=== PATIENT | male | born 1950 | race Caucasian/White ===

== ENCOUNTER 2016-12-28 07:15 | Day surgery (SDC) | payer OTHER, BC ==
[2016-12-27 11:12] VITALS: BMI 28.8
[2016-12-28] MEDS ORDERED: methylPREDNISolone ACET (DEPO) 80 MG/1 ML VIAL ONE (07:33)
[2016-12-28] MEDS ORDERED: BUPIVACAINE HCL/PF 0.25% (2.5MG/ML) 10 ML VIAL ONE (07:33)
[2016-12-28 07:46] VITALS: TEMP 97.7
[2016-12-28] MEDS ORDERED: PROPOFOL 20 ML ONE (08:31)
[2016-12-28] MEDS ORDERED: BUPIVACAINE HCL/PF 0.25% (2.5MG/ML) 10 ML VIAL IM ONE (08:53)
[2016-12-28] MEDS ORDERED: methylPREDNISolone ACET (DEPO) 80 MG/1 ML VIAL IM ONE (08:53)
[2016-12-28 11:34] VITALS: BP 132/85; PULSE 65
--- NOTE | 2016-12-28 21:17 | OP ---
DATE OF OPERATION: 12/28/2016 PREOPERATIVE DIAGNOSIS: Lumbar spinal stenosis with lower back pain and lumbar radiculopathy. POSTOPERATIVE DIAGNOSIS: Lumbar spinal stenosis with lower back pain and lumbar radiculopathy. ATTENDING SURGEON: Matthew uHang MD PROCEDURE: 1. Right L4-5 epidural steroid injection. 2. Intraoperative fluoroscopy. ANESTHESIA: Local with IV sedation. ANESTHESIOLOGIST: Nova Bloom MD INDICATION: The patient is a 66-year-old male with back pain and lumbar radiculopathy, predominantly right-sided. Because of the continued intractable pain and failure of conservative treatment, he is here for the 1st epidural steroid injection. The risks of the procedure include but are not limited to bleeding, infection, spinal headache, and neurological injury. The patient understands the indication for the procedure, procedure in detail, risks and benefits, and alternatives for treatment of his lumbar condition and wished to proceed. No guarantee is given for a favorable outcome. PROCEDURE IN DETAIL: After the patient was taken to the operating room, he was placed in a prone position with a pillow under his hips. Lumbar region was cleaned with alcohol and prepped with Betadine. A skin wheal was raised with 5 mL of 1% Xylocaine. A 22-gauge spinal needle was inserted under AP and lateral fluoroscopic guidance. From right-sided approach to L4-5, [id number] technique was utilized. A thickened ligamentum flavum layer was encountered. There was no CSF or blood backflow at any point in time. Depo-Medrol 80 mg and 1 mL of 0.25% Marcaine were injected. The needle was withdrawn, and a bandage was applied. The patient tolerated the procedure well and returned back to the supine position, moving bilateral extremities well. He did not complain of headache. MATTHEW HUANG M.D. [id number] MTDD
== END 2016-12-28 10:10 | disposition home or self-care (01) ==
LOC: JASU-SURG 07:15
PROVIDERS: ATTEND Neurological Surgery
PROC: 3E0R3CZ (ICD-10-PCS; 2016-12-28)
PROC: B01BZZZ Fluoroscopy of Spinal Cord (ICD-10-PCS; 2016-12-28)
PROC: 3E0R33Z Introduction of Anti-inflammatory into Spinal Canal, Percutaneous Approach (ICD-10-PCS; principal; 2016-12-28 08:30)
DX: M48.06 Spinal stenosis, lumbar region (principal); M54.16 Radiculopathy, lumbar region; M54.5 Low back pain
CPT/HCPCS: 76000-TC

== ENCOUNTER 2017-04-21 00:50 | Inpatient (IN) | payer OTHER, BC ==
[2017-04-21] MEDS ORDERED: SODIUM CHLORIDE 1,000 ML IV STA (01:34)
[2017-04-21] MEDS ORDERED: morphine CARPU-JECT 4 MG/1 ML DISP.SYRIN IVPUSH ONE (01:34)
[2017-04-21] MEDS ORDERED: ONDANSETRON 4 MG/2 ML VIAL IVPUSH ONE ×2 (01:34→05:01)
[2017-04-21 01:41] VITALS: BMI 28.8
[2017-04-21] MEDS ORDERED: ONDANSETRON 4 MG/2 ML VIAL ONE ×2 (01:46→05:04)
[2017-04-21] MEDS ORDERED: morphine CARPU-JECT 10 MG/1 ML DISP.SYRIN ONE (01:46)
[2017-04-21 01:47] LABS: BASOPHIL 0.4 % (0-2.0); EOSINOPHIL 1.3 % (0-4.5); MCH 27.4 pg (25.7-33.7); MCHC 32.9 g/dl (32.0-35.9); MEAN CELL VOLUME 83.3 fl (80-96); NEUTROPHILS 74.4 % (42.8-82.8); PLATELET COUNT 253 K/MM3 (134-434); RDW 14.1 % (11.9-15.9); WHITE BLOOD COUNT 11.9 K/mm3 (4.0-10.0)
[2017-04-21 02:09] LABS: ALBUMIN 4.1 g/dl (3.4-5.0); AMYLASE 69 U/L (25-115); ANION GAP 11 (8-16); BILIRUBIN,TOTAL 0.5 mg/dL (0.2-1.0); CALCIUM 9.1 mg/dL (8.5-10.1); CO2 30 mmol/L (21-32); CREATININE 1.4 mg/dL (0.7-1.3); GLUCOSE,RANDOM 123 mg/dL (74-106); SGOT/AST 19 U/L (15-37); SGPT/ALT 21 U/L (12-78); TOT PROT 7.9 g/dl (6.4-8.2)
[2017-04-21 02:10] LABS: ALK PHOS 74 U/L (45-117)
--- NOTE | 2017-04-21 02:22 | PDOC ---
History of Present Illness - General Chief Complaint: Pain Stated Complaint: ABD PAIN/VOMITING Time Seen by Provider: 04/21/17 01:29 History Source: Patient Exam Limitations: No Limitations - History of Present Illness Travel History: No Initial Comments: 04/21/17 02:17 66yo Male patient w/ PmHx: Colon Ca, Bowel resection, multiple bowel obstruction presents to ED c/o abdominal pain which began at 6pm with vomiting. Patient reports pain to LLQ. He denies fever, constipation, diarrhea, back pain , CP, Diff breathing or any other complaints at this time. GI- Dr. Fraire. Timing/Duration: reports: getting worse, changing over time Quality: reports: severe Abdominal Pain Onset Location: reports: LLQ Pain Radiation: reports: no radiation Activities at Onset: reports: none Treatment Prior to Arrive: worse with: analgesics, antacids, cold pack, heat, laxative, enema, other Aggravating Factors: worse with: None, Defecation, Eating, Emotional upset, Exertion, Kathleen, Movement, Voiding, Change in position Alleviating Factors: worse with: None, Belching, Shallow Breathing, Defecation, Eating, Holding Breath, Passing Gas, Change in Position, Rest, Voiding, Vomiting Past History - Travel Traveled outside of the country in the last 30 days: No Close contact w/someone who was outside of country & ill: No - Past Medical History Allergies/Adverse Reactions: Allergies Allergy/AdvReac Type Severity Reaction Status Date / Time No Known Allergies Allergy Verified 12/28/16 07:50 Home Medications: Ambulatory Orders Atorvastatin Ca [Lipitor] 40 mg PO HS 07/12/16 Cholecalciferol (Vitamin D3) [Vitamin D3] 5,000 unit PO DAILY 07/12/16 Losartan Potassium 50 mg PO DAILY 07/12/16 Magnesium Oxide [Magnesium] 500 mg PO DAILY 07/12/16 Metoprolol Succinate [Toprol Xl -] 12.5 mg PO DAILY 07/12/16 Multivitamins [Tab-A-Vit -] 1 tab PO DAILY 07/12/16 [place]-3S/Dha/Epa/Fish Oil [Fish Oil 1,200 mg Softgel] 1 each PO DAILY 07/12/16 Ranolazine [Ranexa] 1,000 mg PO BID 07/12/16 Anemia: No Asthma: No Cancer: Yes (COLON) Cardiac Disorders: Yes CVA: No COPD: No Dementia: No Diabetes: No GI Disorders: No Disorders: No HTN: Yes Hypercholesterolemia: Yes Liver Disease: No Seizures: No Thyroid Disease: No - Surgical History Abdominal Surgery: Yes (BOWEL RESECTION 1996) Cardiac Surgery: Yes (PACEMAKER STENTS ) Lung Surgery: No Neurologic Surgery: No Orthopedic Surgery: No - Psycho/Social/Smoking Cessation Hx Suicidal Ideation: No Smoking History: Never smoked Have you smoked in the past 12 months: No Hx Alcohol Use: No Drug/Substance Use Hx: No Substance Use Type: Alcohol Abd/GI Specific PMHX - Complaint Specific PMHX Colitis: No Diverticulitis: No Gall Bladder Disease: No GERD: No Hepatitis: No Irritable Bowel Synd (IBS): No Pancreatitis: No GI Ulcer Disease: No Review of Systems - Review of Systems Able to Perform ROS?: Yes Is the patient limited Albanian proficient: No Constitutional: No: Chills, Fever Cardiac (ROS): No: Chest Pain, Chest Tightness ABD/GI: Yes: Nausea, Poor Fluid Intake, Vomiting, Abdominal cramping. No: Abdominal Distended, Blood Streaked Bowels, Constipated, Diarrhea, Poor Appetite , Rectal Bleeding : No: Burning, Dysuria, Discharge, Flank Pain, Hematuria, Incontinence, Pain, Urgency Musculoskeletal: No: Back Pain, Joint Pain Integumentary: No: Bruising, Erythema, Sweating Neurological: No: Headache, Ataxia, Dizziness All Other Systems: Reviewed and Negative *Physical Exam - Vital Signs Last Vital Signs Temp Pulse Resp BP Pulse Ox 98.7 F 64 21 183/89 95 04/21/17 01:04/21/17 01:04/21/17 01:04/21/17 01:04/21/17 01:17 - Physical Exam General Appearance: Yes: Nourished, Appropriately Dressed, Moderate Distress. No: Apparent Distress, Mild Distress, Severe Distress Neck: positive: Trachea midline, Supple. negative: Normal Thyroid, Rigid, Lymphadenopathy (R), Lymphadenopathy (L), Rigidity, Tender lateral, Tender midline Respiratory/Chest: positive: Lungs Clear, Normal Breath Sounds. negative: Chest Tender, Respiratory Distress, Accessory Muscle Use, Labored Respiration, Rapid RR, Crackles, Rales, Rhonchi, Stridor, Wheezing Cardiovascular: positive: Regular Rhythm, Regular Rate Gastrointestinal/Abdominal: positive: Tender, Soft, Decreased BS, Guarding, Tenderness (Generalized tenderness throughout abdomen.). negative: Distended, Rebound Musculoskeletal: positive: Normal Inspection. negative: CVA Tenderness Extremity: positive: Normal Capillary Refill, Normal Inspection, Normal Range of Motion. negative: Pedal Edema, Swelling, Calf Tenderness, Erythema, Inflammation Integumentary: positive: Normal Color, Dry, Warm. negative: Clammy, Diaphoresis , Rash, Swelling Neurologic: positive: custody officer II-XII NML intact, Fully Oriented, Alert, Normal Mood/ Affect, Normal Response, Motor Strength 12/30 ED Treatment Course - LABORATORY CBC & Chemistry Diagram: 04/21/17 01:43 04/21/17 01:43 - ADDITIONAL ORDERS Additional order review: 04/21/17 01:43 RBC 5.42 MCV 83.3 MCHC 32.9 RDW 14.1 MPV 8.0 Neutrophils % 74.4 Lymphocytes % 15.6 D Monocytes % 8.3 Eosinophils % 1.3 Basophils % 0.4 - Medications Given in the ED: ED Medications Discontinued Medications Generic Name Dose Route Start Last Admin Trade Name Freq PRN Reason Stop Dose Admin Morphine Sulfate 4 mg 04/21/17 01:34 04/21/17 01:51 Morphine Injection - IVPUSH 04/21/17 01:35 4 mg ONCE ONE Administration Ondansetron HCl 4 mg 04/21/17 01:34 04/21/17 01:51 Zofran Injection IVPUSH 04/21/17 01:35 4 mg ONCE ONE Administration
[2017-04-21 03:01] LABS: CPK 90 IU/L (39-308); TROPONIN I < 0.02 ng/ml (0.00-0.05)
[2017-04-21 03:25] LABS: URINE APPEARANCE CLEAR; URINE BILIRUBIN NEGATIVE (NEGATIVE); URINE BLOOD 1+ (NEGATIVE); URINE COLOR YELLOW; URINE GLUCOSE (UA) NEGATIVE (NEGATIVE); URINE KETONE NEGATIVE (NEGATIVE); URINE LEUK ESTERASE NEGATIVE (NEGATIVE); URINE NITRITE NEGATIVE (NEGATIVE); URINE PROTEIN NEGATIVE (NEGATIVE); URINE UROBILINOGEN NEGATIVE mg/dL (0.2-1.0)
[2017-04-21 03:27] LABS: URINE BACTERIA RARE /hpf (NONE SEEN); URINE MUCUS FEW; URINE RBC 18 /hpf (0-3); URINE WBC 1 /hpf (3-5)
--- NOTE | 2017-04-21 04:44 | PDOC ---
*Physical Exam - Vital Signs Last Vital Signs Temp Pulse Resp BP Pulse Ox 98.7 F 64 21 183/89 95 04/21/17 01:17 04/21/17 01:17 04/21/17 01:17 04/21/17 01:17 04/21/17 01:17 ED Treatment Course - LABORATORY CBC & Chemistry Diagram: 04/24/17 07:30 04/24/17 07:30 - ADDITIONAL ORDERS Additional order review: Laboratory Results 04/21/17 04/21/17 04/21/17 03:21 02:41 02:17 Sodium Potassium Chloride Carbon Dioxide Anion Gap BUN Creatinine Creat Clearance w eGFR Random Glucose Lactic Acid 1.7 Calcium Total Bilirubin AST ALT Alkaline Phosphatase Creatine Kinase 90 Troponin I < 0.02 Total Protein Albumin Total Amylase Lipase Urine Color Yellow Urine Appearance Clear Urine pH 6.0 Urine Protein Negative Urine Glucose (UA) Negative Urine Ketones Negative Urine Blood 1+ H Urine Nitrite Negative Urine Bilirubin Negative Urine Urobilinogen Negative Ur Leukocyte Esterase Negative Urine RBC 18 Urine WBC 1 Urine Bacteria Rare Urine Mucus Few 04/21/17 01:43 Sodium 142 Potassium 4.2 Chloride 101 Carbon Dioxide 30 Anion Gap 11 BUN 21 H Creatinine 1.4 H Creat Clearance w eGFR 50.40 Random Glucose 123 H D Lactic Acid Calcium 9.1 Total Bilirubin 0.5 D AST 19 ALT 21 Alkaline Phosphatase 74 Creatine Kinase Troponin I Total Protein 7.9 Albumin 4.1 Total Amylase 69 Lipase 202 Urine Color Urine Appearance Urine pH Urine Protein Urine Glucose (UA) Urine Ketones Urine Blood Urine Nitrite Urine Bilirubin Urine Urobilinogen Ur Leukocyte Esterase Urine RBC Urine WBC Urine Bacteria Urine Mucus 04/21/17 01:43 RBC 5.42 MCV 83.3 MCHC 32.9 RDW 14.1 MPV 8.0 Neutrophils % 74.4 Lymphocytes % 15.6 D Monocytes % 8.3 Eosinophils % 1.3 Basophils % 0.4 - Medications Given in the ED: ED Medications Discontinued Medications Generic Name Dose Route Start Last Admin Trade Name Freq PRN Reason Stop Dose Admin Sodium Chloride 1,000 mls @ 1,000 mls/hr 04/21/17 01:34 04/21/17 01:51 Normal Saline - IV 04/21/17 02:33 1,000 mls/hr ASDIR STA Administration Morphine Sulfate 4 mg 04/21/17 01:34 04/21/17 01:51 Morphine Injection - IVPUSH 04/21/17 01:35 4 mg ONCE ONE Administration Ondansetron HCl 4 mg 04/21/17 01:34 04/21/17 01:51 Zofran Injection IVPUSH 04/21/17 01:35 4 mg ONCE ONE Administration Medical Decision Making - Medical Decision Making 04/21/17 04:43 agree with care from FOOT PRESS OPERATOR Arnaldo *DC/Admit/Observation/Transfer Diagnosis at time of Disposition: Abdominal pain, Small intestine obstruction - Discharge Dispostion Disposition: HOME Condition at time of disposition: Stable
[2017-04-21] MEDS ORDERED: morphine CARPU-JECT 2 MG/1 ML DISP.SYRIN IVPUSH ONE (05:02)
[2017-04-21] MEDS ORDERED: morphine CARPU-JECT 2 MG/1 ML DISP.SYRIN ONE (05:03)
--- NOTE | 2017-04-21 05:54 | PDOC ---
*Physical Exam - Vital Signs Last Vital Signs Temp Pulse Resp BP Pulse Ox 98.7 F 71 20 171/104 95 04/21/17 01:17 04/21/17 05:22 04/21/17 05:22 04/21/17 05:22 04/21/17 01:17 - Physical Exam Comments: 04/21/17 05:55 PMHX: SBO HTN Cervical/lumbar disc herniation Lume dx: 2003 Pshx: 01/1996 [facility]: Colon CA, Colon resection/Dr. Abbott 01/1996, 5 days post op(colon resection) rupture anastomosis causing peritonitis. Colostomy by Dr. Abbott 05/1996: [facility]; Dr. Abbott colostomy reversal 07/1996: [facility]: SBO/ Lysis of adhesions by Scar Ibrahim 1996: [facility]el/?, SBO. No surgery/NG tube 2011: PM due to lyme dz "attacked my AV node" 2013: 4 Cardiac stents 2016: [facility]: Incarcerated Ventral Hernia/ SBO Metronic: CMRN: [id number] DOS: 06/07/2013 Metronic A2DR01 SN:[id number] Metronic 5086MRI-45cm SN: [id number] Metronic 5086MRI SN:[id number] (Supply Chain Planner) [facility] [phone] 66-year-old male with a history of bowel resection due to: CVA and multiple mechanical obstructions presents to the emergency department today with his complaining of diffuse abdominal pain with nausea and vomiting since approximately 1800 hrs. Pain is described as 6/10 sharp nonradiating intermittent discomfort to the left lower quadrant. Patient denies any fever, chills, vomiting, constipation, chest pain, shortness of breath, flank pains, urinary symptoms. ED Treatment Course - LABORATORY CBC & Chemistry Diagram: 04/21/17 01:43 04/21/17 01:43 - ADDITIONAL ORDERS Additional order review: Laboratory Results 04/21/17 04/21/17 04/21/17 03:21 02:41 02:17 Sodium Potassium Chloride Carbon Dioxide Anion Gap BUN Creatinine Creat Clearance w eGFR Random Glucose Lactic Acid 1.7 Calcium Total Bilirubin AST ALT Alkaline Phosphatase Creatine Kinase 90 Troponin I < 0.02 Total Protein Albumin Total Amylase Lipase Urine Color Yellow Urine Appearance Clear Urine pH 6.0 Urine Protein Negative Urine Glucose (UA) Negative Urine Ketones Negative Urine Blood 1+ H Urine Nitrite Negative Urine Bilirubin Negative Urine Urobilinogen Negative Ur Leukocyte Esterase Negative Urine RBC 18 Urine WBC 1 Urine Bacteria Rare Urine Mucus Few 04/21/17 01:43 Sodium 142 Potassium 4.2 Chloride 101 Carbon Dioxide 30 Anion Gap 11 BUN 21 H Creatinine 1.4 H Creat Clearance w eGFR 50.40 Random Glucose 123 H D Lactic Acid Calcium 9.1 Total Bilirubin 0.5 D AST 19 ALT 21 Alkaline Phosphatase 74 Creatine Kinase Troponin I Total Protein 7.9 Albumin 4.1 Total Amylase 69 Lipase 202 Urine Color Urine Appearance Urine pH Urine Protein Urine Glucose (UA) Urine Ketones Urine Blood Urine Nitrite Urine Bilirubin Urine Urobilinogen Ur Leukocyte Esterase Urine RBC Urine WBC Urine Bacteria Urine Mucus 04/21/17 01:43 RBC 5.42 MCV 83.3 MCHC 32.9 RDW 14.1 MPV 8.0 Neutrophils % 74.4 Lymphocytes % 15.6 D Monocytes % 8.3 Eosinophils % 1.3 Basophils % 0.4 - RADIOLOGY Radiology Studies Ordered: Category Date Time Status ABDOMEN & PELVIS CT W/O CONTR [CT] Stat CT Scan 04/21/17 03:47 Taken Radiograph Interpretation: 04/21/17 06:08 CAT scan abdomen and pelvis with by mouth contrast: There is a dilated loops of left mid abdominal small bowel measuring up to 3.1 cm with mild regional mesenteric edema, suggestive of a small bowel shock prado. No abscess or free air. The transition point is not clearly seen but may be at the anastomosis suggesting structure - Medications Given in the ED: ED Medications Discontinued Medications Generic Name Dose Route Start Last Admin Trade Name Linoq PRN Reason Stop Dose Admin Sodium Chloride 1,000 mls @ 1,000 mls/hr 04/21/17 01:34 04/21/17 01:51 Normal Saline - IV 04/21/17 02:33 1,000 mls/hr ASDIR STA Administration Morphine Sulfate 4 mg 04/21/17 01:34 04/21/17 01:51 Morphine Injection - IVPUSH 04/21/17 01:35 4 mg ONCE ONE Administration Morphine Sulfate 2 mg 04/21/17 05:02 04/21/17 05:21 Morphine Injection - IVPUSH 04/21/17 05:03 2 mg ONCE ONE Administration Ondansetron HCl 4 mg 04/21/17 01:34 04/21/17 01:51 Zofran Injection IVPUSH 04/21/17 01:35 4 mg ONCE ONE Administration Ondansetron HCl 4 mg 04/21/17 05:01 04/21/17 05:21 Zofran Injection IVPUSH 04/21/17 05:02 4 mg ONCE ONE Administration Progress Note - Progress Note Progress Note: Patient waiting for CAT scan abdomen/pelvis with oral contrast 0613hrs: Hospitalist microblogged 0615hrs: Pt strongly advised to allow us to place an NG tube which he refuses at this time. Pt reports he has + flatulence. Pt wishes to consult with the admitting physician and the his own physician first. *DC/Admit/Observation/Transfer Diagnosis at time of Disposition: Small intestine obstruction Abdominal pain Qualifiers: Abdominal location: left lower quadrant Qualified Code(s): R10.32 - Left lower quadrant pain - Discharge Dispostion Admit: Yes
[2017-04-21] MEDS ORDERED: HYDROmorphone HCL CARPU-JECT 1 MG/1 ML DISP.SYRIN IVPUSH ONE (06:48)
[2017-04-21] MEDS ORDERED: METOCLOPRAMIDE HCL INJECTION 10 MG/2 ML VIAL IVPUSH ONE (06:49)
[2017-04-21] MEDS ORDERED: METOCLOPRAMIDE HCL INJECTION 10 MG/2 ML VIAL ONE (06:52)
[2017-04-21] MEDS ORDERED: HYDROmorphone HCL CARPU-JECT 1 MG/1 ML DISP.SYRIN ONE (06:52)
[2017-04-21] MEDS: DEXTROSE 5%-0.45% SALINE 1,000 ML IV SCH ×2 (07:01→18:44)
--- NOTE | 2017-04-21 07:36 | HP ---
CHIEF COMPLAINT:abdominal pain PCP: HISTORY OF PRESENT ILLNESS: 66yo Male patient w/ PmHx: Colon Ca(s/p bowel resection), Crohn's, and multiple SBO 2/2 multiple abdominal surgeries presents with one day history of abdominal pain. He describes constant 4/10 LLQ sharp pain that generalizes to 9/10 pain. Associated with nonbillouis, non-bloody vomiting. No alleviating factors, and aggravated by eating. He has multiple SBO's in the past 2/2 mechanical obstruction from adhesions. Not currently on any treatment for his Crohn's. Denies fever or chills. Denies CP, SPENCER, SOB, or palpiations. ER course was notable for: (1)CT abdomen shows small bowel obstruction but no inflammation. (2)CXR shows no acute pathology (3)EKG shows NSR with no st or t wave abnormalities. Recent Travel: Denies - Surgical History Abdominal Surgery: Yes (BOWEL RESECTION 1996) Cardiac Surgery: Yes (PACEMAKER STENTS ) Lung Surgery: No Neurologic Surgery: No Orthopedic Surgery: No - Psycho/Social/Smoking Cessation Hx Suicidal Ideation: No Smoking History: Never smoked Have you smoked in the past 12 months: No Hx Alcohol Use: No Drug/Substance Use Hx: No Substance Use Type: Alcohol Family History: Allergies No Known Allergies Allergy (Verified 12/28/16 07:50) HOME MEDICATIONS: Home Medications Medication Instructions Recorded Atorvastatin Ca [Lipitor] 40 mg PO HS 07/12/16 Cholecalciferol (Vitamin D3) 5,000 unit PO DAILY 07/12/16 [Vitamin D3] Losartan Potassium 50 mg PO DAILY 07/12/16 Magnesium Oxide [Magnesium] 500 mg PO DAILY 07/12/16 Metoprolol Succinate [Toprol Xl -] 12.5 mg PO DAILY 07/12/16 Multivitamins [Tab-A-Vit -] 1 tab PO DAILY 07/12/16 [place]-3S/Dha/Epa/Fish Oil [Fish 1 each PO DAILY 07/12/16 Oil 1,200 mg Softgel] Ranolazine [Ranexa] 1,000 mg PO BID 07/12/16 REVIEW OF SYSTEMS CONSTITUTIONAL: Absent: fever, chills, diaphoresis, generalized weakness, malaise, loss of appetite, weight change HEENT: Absent: rhinorrhea, nasal congestion, throat pain, throat swelling, difficulty swallowing, mouth swelling, ear pain, eye pain, visual changes CARDIOVASCULAR: Absent: chest pain, syncope, palpitations, irregular heart rate, lightheadedness , peripheral edema RESPIRATORY: Absent: cough, shortness of breath, dyspnea with exertion, orthopnea, wheezing, stridor, hemoptysis GASTROINTESTINAL:abdominal pain, abdominal distension, nausea, vomiting Absent: , diarrhea, constipation, melena, hematochezia GENITOURINARY: Absent: dysuria, frequency, urgency, hesitancy, hematuria, flank pain, genital pain MUSCULOSKELETAL: Absent: myalgia, arthralgia, joint swelling, back pain, neck pain SKIN: Absent: rash, itching, pallor HEMATOLOGIC/IMMUNOLOGIC: Absent: easy bleeding, easy bruising, lymphadenopathy, frequent infections ENDOCRINE: Absent: unexplained weight gain, unexplained weight loss, heat intolerance, cold intolerance NEUROLOGIC: Absent: headache, focal weakness or paresthesias, dizziness, unsteady gait, seizure, mental status changes, bladder or bowel incontinence PSYCHIATRIC: Absent: anxiety, depression, suicidal or homicidal ideation, hallucinations. PHYSICAL EXAMINATION GENERAL: AAOx3, mild distress HEAD: Normal with no signs of trauma. EYES: PERRLA,EOMI, sclera anicteric, conjunctiva clear. No lid lag. EARS, NOSE, THROAT:dry mucous membranes. NECK: supple, no jvd LUNGS: CTAB. No wheezes, and no crackles. No accessory muscle use. HEART: RRR, normal S1 and S2 without murmur, rub or gallop. ABDOMEN: Soft, LLQ tenderness, moderately distended,Extensive surgical scaring , normoactive bowel sounds, no guarding, no rebound, no masses. No hepatomegaly or splenomegaly. MUSCULOSKELETAL: Normal range of motion at all joints. No bony deformities or tenderness. No CVA tenderness. UPPER EXTREMITIES: 2+ pulses, warm, well-perfused. No cyanosis. No clubbing. No peripheral edema. LOWER EXTREMITIES: 2+ pulses, warm, well-perfused. No calf tenderness. No peripheral edema. NEUROLOGICAL: Cranial nerves II-XII intact. Normal speech. Normal gait. PSYCHIATRIC: Cooperative. Good eye contact. Appropriate mood and affect. SKIN: Warm, dry, normal turgor, no rashes or lesions noted, normal capillary refill. ASSESSMENT/PLAN: 66yo Male patient w/ PmHx: Colon Ca, multiple bowel obstruction admitted for acute SBO. Problem List - Problem (1) Small intestine obstruction Assessment/Plan: * Will admit to med-surg * NPO for now * IVF with D5 1/2 NS * Surgery consult - Dr. Peace * Dilaudid 1mg Q4HPRN pain control * Zofran 4mg Q6hr IV for nausea. Visit type - Emergency Visit Emergency Visit: Yes ED Registration Date: 04/21/17 Care time: The patient presented to the Emergency Department on the above date and was hospitalized for further evaluation of their emergent condition. - New Patient This patient is new to me today: Yes Date on this admission: 04/21/17 - Critical Care Critical Care patient: No
[2017-04-21] MEDS: HYDROmorphone HCL CARPU-JECT 1 MG/1 ML DISP.SYRIN IVPUSH PRN ×3 (11:30→20:27)
[2017-04-21] MEDS: HEPARIN NA (PORCINE) 5,000 UNITS/ML 1ML VIAL SQ SCH ×2 (11:33→22:26)
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
[2017-04-21] MEDS: ONDANSETRON 4 MG/2 ML VIAL IVPB PRN ×2 (11:55→17:25)
[2017-04-21] MEDS ORDERED: METOPROLOL TARTRATE 5 MG/5 ML VIAL IVPUSH PRN (11:56)
--- NOTE | 2017-04-21 12:04 | EKG ---
Test Reason : Blood Pressure : / mmHG Vent. Rate : 094 BPM Atrial Rate : 094 BPM P-R Int : 206 ms QRS Dur : 154 ms QT Int : 410 ms P-R-T Axes : -03 080 -37 degrees QTc Int : 512 ms AV dual-paced rhythm ABNORMAL ECG WHEN COMPARED WITH ECG OF 12-JUL-2016 15:19, ELECTRONIC VENTRICULAR PACEMAKER HAS REPLACED JUNCTIONAL RHYTHM Confirmed by MD CRISTHIAN, DIXIE ([id number]) on 04/21/2017 12:04:00 PM Referred By: Confirmed By:DIXIE MORROW MD
--- NOTE | 2017-04-21 13:56 | HP ---
CHIEF COMPLAINT: abdominal pain and emesis since 6pm GI: Dr. Vigil, [facility] HISTORY OF PRESENT ILLNESS: 66 y/o M with PMH Crohns (dx 20 yrs ago), Colon CA, multiple SBO, bowel resection (1996), hx incarcerated ventral hernia, who presented to the ED with abdominal pain and vomiting since 6pm, yesterday. As per pt, he developed abdominal pain after eating pizza and wings for dinner last night. Pain was 10/ 10, in the LLQ, sharp, non-radiating and intermittent, and came in waves- first 1-2 min apart, then becoming constant. Pt stated that it was similar to his past episodes of SBO. During this time, pt had multiple episodes of NBNB vomiting. His last BM was yesterday, and he hasn't been able to go since, and hasn't passed flatus. He also has had chills. Denies headache, fever, diarrhea, dysuria, sick contacts. ER course was notable for: (1) CT abdomen w/contrast (2) Morphine, Zofran (3) Recent Travel: none PAST MEDICAL HISTORY: HTN, HLD, Crohns (dx 20 yrs ago), colon CA, bowel resection, multiple episodes SBO, pancreatic cyst PAST SURGICAL HISTORY: 4 cardiac stents, bowel resection 1996, lysis of adhesions, incarcerated ventral hernia Social History: Smoking: denies Alcohol: social drinker, wine on weekends- limited Drugs: denies Family History: Brother- mitral valve replacement, mother -emphysema, father- emphysema Allergies No Known Allergies Allergy (Verified 12/28/16 07:50) HOME MEDICATIONS: Home Medications Medication Instructions Recorded Atorvastatin Ca [Lipitor] 40 mg PO HS 07/12/16 Cholecalciferol (Vitamin D3) 5,000 unit PO DAILY 07/12/16 [Vitamin D3] Losartan Potassium 50 mg PO DAILY 07/12/16 Magnesium Oxide [Magnesium] 500 mg PO DAILY 07/12/16 Metoprolol Succinate [Toprol Xl -] 12.5 mg PO DAILY 07/12/16 Multivitamins [Tab-A-Vit -] 1 tab PO DAILY 07/12/16 [place]-3S/Dha/Epa/Fish Oil [Fish 1 each PO DAILY 07/12/16 Oil 1,200 mg Softgel] Ranolazine [Ranexa] 1,000 mg PO BID 07/12/16 REVIEW OF SYSTEMS CONSTITUTIONAL: +chills Absent: fever, chills, diaphoresis, generalized weakness, malaise, loss of appetite, weight change HEENT: Absent: rhinorrhea, nasal congestion, throat pain, throat swelling, difficulty swallowing, mouth swelling, ear pain, eye pain, visual changes CARDIOVASCULAR: Absent: chest pain, syncope, palpitations, irregular heart rate, lightheadedness , peripheral edema RESPIRATORY: Absent: cough, shortness of breath, dyspnea with exertion, orthopnea, wheezing, stridor, hemoptysis GASTROINTESTINAL: +abdominal pain, nausea, vomiting Absent: abdominal pain, abdominal distension, nausea, vomiting, diarrhea, constipation, melena, hematochezia GENITOURINARY: Absent: dysuria, frequency, urgency, hesitancy, hematuria, flank pain, genital pain MUSCULOSKELETAL: Absent: myalgia, arthralgia, joint swelling, back pain, neck pain SKIN: Absent: rash, itching, pallor HEMATOLOGIC/IMMUNOLOGIC: Absent: easy bleeding, easy bruising, lymphadenopathy, frequent infections ENDOCRINE: Absent: unexplained weight gain, unexplained weight loss, heat intolerance, cold intolerance NEUROLOGIC: Absent: headache, focal weakness or paresthesias, dizziness, unsteady gait, seizure, mental status changes, bladder or bowel incontinence PSYCHIATRIC: Absent: anxiety, depression, suicidal or homicidal ideation, hallucinations. PHYSICAL EXAMINATION Vital Signs - 24 hr 04/21/17 04/21/17 09:00 13:00 Temperature 98.2 F Pulse Rate 92 H 98 H Respiratory 16 16 Rate Blood Pressure 158/101 142/82 O2 Sat by Pulse 97 Oximetry (%) GENERAL: Awake, alert, and fully oriented, in no acute distress. HEAD: Normal with no signs of trauma. EYES: Pupils equal, round and reactive to light, extraocular movements intact, sclera anicteric, conjunctiva clear. NECK: Normal range of motion, supple without lymphadenopathy, JVD, or masses. LUNGS: Breath sounds equal, clear to auscultation bilaterally. No wheezes, and no crackles. No accessory muscle use. HEART: Regular rate and rhythm, normal S1 and S2 without murmur, rub or gallop. ABDOMEN: Soft, distended, tender to palpation LLQ, normoactive bowel sounds, no guarding, no rebound, no masses. No hepatomegaly or splenomegaly. Linear scar from past surgeries at midline. MUSCULOSKELETAL: Normal range of motion at all joints. No bony deformities or tenderness. No CVA tenderness. LOWER EXTREMITIES: 2+ posterior tibial pulses, warm, well-perfused. No calf tenderness. No peripheral edema. NEUROLOGICAL: Cranial nerves II-XII intact. ASSESSMENT/PLAN: 66 y/o M with PMH Crohns (dx 20 yrs ago), Colon CA, multiple SBO, bowel resection (1996), hx incarcerated ventral hernia, who presented to the ED with abdominal pain and vomiting since 6pm, yesterday. Pt admitted to med-surg for SBO secondary to adhesions. #SBO secondary to adhesions -waves of sharp pain after meal, by 1-2 min then becoming constant -Significant hx past SBO -no recent BMs, obstipation -NPO -IV hydration D51/2NS to replete fluids -Surgery consult -GI consult recommended -Dilaudid 1mg q4h PRN for pain control -Zofran PRN for nausea -Parenteral glucocorticoids if does not resolve in 24-28 hrs, suggested in pts with comorbid Crohns and SBO -NG tube- refused by pt, risks and benefits discussed with pt, pt expressed understanding -Serial abdominal exams #HTN-uncontrolled -BP 158/101, most likely secondary to pain -Will see if resolves with pain control -Continue Losartan 50 mg PO daily -Continue Toprol XL 12.5 mg PO daily #HLD -Continue lipitor 40mg PO HS #NAVEEN secondary to volume depletion -most likely pre-renal, d/t depletion resulting from SBO -Manage with IVF -F/u BMP routinely -Baseline Cr ~1.5 #Prophylaxis DVT: early ambulation #FEN -D51/2NS -Monitor electrolytes -NPO Disposition med-surg Visit type - Emergency Visit Emergency Visit: Yes ED Registration Date: 04/21/17 Care time: The patient presented to the Emergency Department on the above date and was hospitalized for further evaluation of their emergent condition. - New Patient This patient is new to me today: Yes Date on this admission: 04/21/17 - Critical Care Critical Care patient: No
--- NOTE | 2017-04-21 14:01 | PN ---
Teaching Attending Note Name of Resident: Shilpa Rachel ATTENDING PHYSICIAN STATEMENT I saw and evaluated the patient. I reviewed the resident's note and discussed the case with the resident. I agree with the resident's findings and plan as documented. 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 Developed after eating pizza and wings. was sudden onset, sharp and non radiating. states since hes arrived to the ER the pain has improved with pain medication. passing a lot of flatus. denies CP, SOB, fever, chills, or BM since yesterday Last SBO was 06/2016 and was treated conservatively. Multiple SBO all managed conservatively. did have surgery for lysis of adhesions OBJECTIVE: Last Vital Signs Temp Pulse Resp BP Pulse Ox 98.2 F 98 H 16 142/82 97 04/21/17 09:00 04/21/17 13:00 04/21/17 13:00 04/21/17 13:00 04/21/17 09:00 General NAD CV S1 S2 RRR no murmur/rub/gallop Lungs CTA B/L no wheezing/rales/rhonchi Abdomen soft +distended, tympanic. +LLQ tenderness hypoactive BS Extremities no pedal edema ASSESSMENT AND PLAN: 66yo M with PMH adenocarcinoma of the cecum, multiple SBP and Crohns presented to the ER with abdominal pain and vomiting and found to have SBO 1. SBO- medicine admission. likely due to adhesionspt is refusing NGT placement. discuss risks and benefits of placement. verbalized understanding but states it feels to have been improving. serial abdominal exams. repeat AXR shows not much improvement since initial CT on my read. cont NPO, IVF, pain and nausea control. GI and surgery on board. 2. HTN- above goal. likely due to pain. will monitor at this time. increase if needed to optimize control 3. NAVEEN- likely dehydration. IVF. avoid nephrotoxic agents 4. Gastric polyp- seen on CT scan. no known hx. not seen on CT scan from last year. will need to determine if this was seen on previous endoscopy. obtain records from GI 5. adenocarcinoma of the cecum 6. hematuria- possible dehydration. repeat UA 7. DVT ppx- hep sq
[2017-04-21] MEDS: LOSARTAN POTASSIUM 50 MG TABLET (FP) PO SCH (16:11)
[2017-04-21] MEDS: METOPROLOL SUCCINATE 25 MG TAB.SR.24H (FP) PO SCH (16:11)
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
[2017-04-21] MEDS ORDERED: ATORVASTATIN CA 40 MG TABLET (FP) PO SCH (22:00)
[2017-04-21] MEDS: RANOLAZINE E.R. 500 MG TABLET (FP) PO SCH (22:26)
[2017-04-21] MEDS: ATORVASTATIN CA 40 MG TABLET (FP) PO SCH (22:26)
[2017-04-22] MEDS: ONDANSETRON 4 MG/2 ML VIAL IVPB PRN ×2 (01:17→22:56)
[2017-04-22] MEDS: HYDROmorphone HCL CARPU-JECT 1 MG/1 ML DISP.SYRIN IVPUSH PRN ×2 (01:50→07:19)
[2017-04-22 07:08] LABS: BASOPHIL 0.4 % (0-2.0); EOSINOPHIL 6.4 % (0-4.5); MCH 27.2 pg (25.7-33.7); MCHC 32.2 g/dl (32.0-35.9); MEAN CELL VOLUME 84.6 fl (80-96); NEUTROPHILS 49.5 % (42.8-82.8); PLATELET COUNT 185 K/MM3 (134-434); WHITE BLOOD COUNT 5.1 K/mm3 (4.0-10.0)
[2017-04-22 07:21] LABS: ALBUMIN 3.1 g/dl (3.4-5.0); ALK PHOS 58 U/L (45-117); ANION GAP 4 (8-16); BILIRUBIN,TOTAL 0.9 mg/dL (0.2-1.0); CALCIUM 8.1 mg/dL (8.5-10.1); CO2 32 mmol/L (21-32); CREATININE 1.2 mg/dL (0.7-1.3); GLUCOSE,RANDOM 102 mg/dL (74-106); PHOSPHOROUS 2.8 mg/dL (2.5-4.9); SGOT/AST 16 U/L (15-37); SGPT/ALT 16 U/L (12-78)
[2017-04-22] MEDS ORDERED: HYDROmorphone HCL CARPU-JECT 1 MG/1 ML DISP.SYRIN IVPB PRN (07:42)
--- NOTE | 2017-04-22 07:51 | PN ---
Progress Note (short form) - Note Progress Note: states abdominal pain has improved. less cramping. distention feels improved. and requesting to eat. denies CP, SOB, fever, chills, N/V. +flatus no BM Current Medications Generic Name Dose Route Start Last Admin Trade Name Freq PRN Reason Stop Dose Admin Atorvastatin Calcium 40 mg 04/21/17 22:00 04/21/17 22:26 Lipitor - PO 40 mg HS LAKISHA Administration Heparin Sodium (Porcine) 5,000 unit 04/21/17 10:00 04/21/17 22:26 Heparin - SQ 5,000 unit BID LAKISHA Administration Hydromorphone HCl 1 mg 04/22/17 07:42 Dilaudid Injection - IVPB Q4H PRN PAIN Dextrose/Sodium Chloride 1,000 mls @ 125 mls/hr 04/21/17 07:00 04/21/17 18:44 D5-1/2ns - IV 125 mls/hr ASDIR LAKISHA Administration Losartan Potassium 50 mg 04/21/17 14:15 04/21/17 16:11 Cozaar - PO 50 mg DAILY LAKISHA Administration Metoprolol Succinate 12.5 mg 04/21/17 14:15 04/21/17 16:11 Toprol Xl - PO 12.5 mg DAILY LAKISHA Administration Ondansetron HCl 4 mg 04/21/17 07:26 04/22/17 01:17 Zofran Injection IVPB 4 mg Q6H PRN Administration NAUSEA Ranolazine 1,000 mg 04/21/17 22:00 04/21/17 22:26 Ranexa - PO 1,000 mg BID LAKISHA Administration Last Vital Signs Temp Pulse Resp BP Pulse Ox 98.6 F 82 18 142/84 97 04/22/17 02:00 04/22/17 02:00 04/22/17 02:00 04/22/17 02:00 04/21/17 09:00 General NAD Abdomen soft +distended, tympanic. no tenderness normoactive BS Extremities no pedal edema CBCD WBC 5.1 K/mm3 (4.0-10.0) D 04/22/17 06:00 RBC 4.28 M/mm3 (4.00-5.60) D 04/22/17 06:00 Hgb 11.7 GM/dL (11.7-16.9) D 04/22/17 06:00 Hct 36.3 % (35.4-49) D 04/22/17 06:00 MCV 84.6 fl (80-96) 04/22/17 06:00 MCHC 32.2 g/dl (32.0-35.9) 04/22/17 06:00 RDW 14.0 % (11.9-15.9) 04/22/17 06:00 Plt Count 185 K/MM3 (134-434) D 04/22/17 06:00 MPV 8.0 fl (7.5-11.1) 04/22/17 06:00 CMP Sodium 142 mmol/L (136-145) 04/21/17 01:43 Potassium 4.2 mmol/L (3.5-5.1) 04/21/17 01:43 Chloride 101 mmol/L (98-107) 04/21/17 01:43 Carbon Dioxide 30 mmol/L (21-32) 04/21/17 01:43 Anion Gap 11 (8-16) 04/21/17 01:43 BUN 21 mg/dL (7-18) H 04/21/17 01:43 Creatinine 1.4 mg/dL (0.7-1.3) H 04/21/17 01:43 Creat Clearance w eGFR 50.40 (>60) 04/21/17 01:43 Calcium 9.1 mg/dL (8.5-10.1) 04/21/17 01:43 Total Bilirubin 0.5 mg/dL (0.2-1.0) D 04/21/17 01:43 AST 19 U/L (15-37) 04/21/17 01:43 ALT 21 U/L (12-78) 04/21/17 01:43 Alkaline Phosphatase 74 U/L (45-117) 04/21/17 01:43 Total Protein 7.9 g/dl (6.4-8.2) 04/21/17 01:43 Albumin 4.1 g/dl (3.4-5.0) 04/21/17 01:43 ASSESSMENT AND PLAN: 66yo M with PMH adenocarcinoma of the cecum, multiple SBP and Crohns presented to the ER with abdominal pain and vomiting and found to have SBO 1. SBO- clinically improved. slightly less distended today. states UOP has increased and requesting to eat. f/u AXR this AM. if continues to improve will advance to clear liquid diet. consider suppositry but will wait results of xr. cont IVF, pain management and nausea control. GI and surgery on board. 2. HTN- improved. was likely elevated due to pain. cont home medications 3. NAVEEN- likely dehydration. IVF. avoid nephrotoxic agents 4. Gastric polyp- seen on CT scan. no known hx. not seen on CT scan from last year. will need to determine if this was seen on previous endoscopy. obtain records from GI 5. adenocarcinoma of the cecum 6. hematuria- possible dehydration. repeat UA 7. DVT ppx- hep sq Visit type - Emergency Visit Emergency Visit: Yes ED Registration Date: 04/21/17 Care time: The patient presented to the Emergency Department on the above date and was hospitalized for further evaluation of their emergent condition. - New Patient This patient is new to me today: No - Critical Care Critical Care patient: No - Discharge Referral Referred to [facility] No
[2017-04-22] MEDS: DEXTROSE 5%-0.45% SALINE 1,000 ML IV SCH ×2 (08:54→13:34)
[2017-04-22] MEDS: RANOLAZINE E.R. 500 MG TABLET (FP) PO SCH ×2 (09:43→22:12)
[2017-04-22] MEDS: METOPROLOL SUCCINATE 25 MG TAB.SR.24H (FP) PO SCH (09:44)
[2017-04-22] MEDS: HEPARIN NA (PORCINE) 5,000 UNITS/ML 1ML VIAL SQ SCH ×2 (09:44→22:11)
[2017-04-22] MEDS: LOSARTAN POTASSIUM 50 MG TABLET (FP) PO SCH (09:44)
[2017-04-22 11:11] LABS: URINE APPEARANCE CLEAR; URINE BILIRUBIN NEGATIVE (NEGATIVE); URINE BLOOD 2+ (NEGATIVE); URINE COLOR STRAW; URINE GLUCOSE (UA) NEGATIVE (NEGATIVE); URINE KETONE NEGATIVE (NEGATIVE); URINE LEUK ESTERASE NEGATIVE (NEGATIVE); URINE NITRITE NEGATIVE (NEGATIVE); URINE PROTEIN NEGATIVE (NEGATIVE); URINE UROBILINOGEN NEGATIVE mg/dL (0.2-1.0)
[2017-04-22 11:13] LABS: URINE RBC 2 /hpf (0-3)
--- NOTE | 2017-04-22 13:47 | PN ---
Progress Note, Physician History of Present Illness: Patient feels better , has less abdominal pain. Abdominal X-ray shows a few air fluid levels in small bowel , with all the contrast in the colon. This is suggestive of ? partial small bowel obstruction. Continue to monitor. Follow up, abdominal X-ray tomorrow. - Current Medication List Current Medications: Active Medications Atorvastatin Calcium (Lipitor -) 40 mg PO HS [facility] Last Admin: 04/21/17 22:26 Dose: 40 mg Heparin Sodium (Porcine) (Heparin -) 5,000 unit SQ BID [facility] Last Admin: 04/22/17 09:44 Dose: 5,000 unit Hydromorphone HCl (Dilaudid Injection -) 1 mg IVPB Q4H PRN PRN Reason: PAIN Dextrose/Sodium Chloride (D5-1/2ns -) 1,000 mls @ 125 mls/hr IV ASDIR [facility] Last Admin: 04/22/17 13:34 Dose: 125 mls/hr Losartan Potassium (Cozaar -) 50 mg PO DAILY [facility] Last Admin: 04/22/17 09:44 Dose: 50 mg Metoprolol Succinate (Toprol Xl -) 12.5 mg PO DAILY [facility] Last Admin: 04/22/17 09:44 Dose: 12.5 mg Ondansetron HCl (Zofran Injection) 4 mg IVPB Q6H PRN PRN Reason: NAUSEA Last Admin: 04/22/17 01:17 Dose: 4 mg Ranolazine (Ranexa -) 1,000 mg PO BID [facility] Last Admin: 04/22/17 09:43 Dose: 1,000 mg - Objective Vital Signs: Vital Signs Temperature 98.4 F 04/22/17 10:00 Pulse Rate 73 04/22/17 10:00 Respiratory Rate 18 04/22/17 10:00 Blood Pressure 128/80 04/22/17 10:00 O2 Sat by Pulse Oximetry (%) 97 04/22/17 09:00 Labs: CBC, BMP 04/22/17 06:00 04/22/17 06:00 Problem List - Problems (1) Small intestine obstruction Code(s): K56.69 - OTHER INTESTINAL OBSTRUCTION (2) Abdominal pain Code(s): R10.9 - UNSPECIFIED ABDOMINAL PAIN Qualifiers: Abdominal location: left lower quadrant Qualified Code(s): R10.32 - Left lower quadrant pain (3) Enteritis Code(s): K52.9 - NONINFECTIVE GASTROENTERITIS AND COLITIS, UNSPECIFIED (4) CAD (coronary artery disease) Code(s): I25.10 - ATHSCL HEART DISEASE OF [place] CORONARY ARTERY W/O ANG PCTRS
--- NOTE | 2017-04-22 15:46 | PN ---
GI Progress Note Subjective: GASTROENTEROLOGY (FOR WILDA) AXR IMPROVING STILL WITH PARTIAL SBO PASSING GAS WANTS TO EAT, GIVEN SIPS OF WATER BY SURGERY - Objective Vital Signs: Vital Signs Temperature 98 F 04/22/17 15:01 Pulse Rate 70 04/22/17 15:01 Respiratory Rate 20 04/22/17 15:01 Blood Pressure 131/83 04/22/17 15:01 O2 Sat by Pulse Oximetry (%) 97 04/22/17 09:00 Constitutional: No Distress Eyes: Yes: Conjunctiva Clear HENT: Yes: Normocephalic Neck: Yes: Supple Cardiovascular: Yes: Regular Rate and Rhythm Respiratory: Yes: Regular Gastrointestinal Inspection: Yes: WNL ...Auscultate: Yes: Hypoactive Bowel Sounds ...Palpate: Yes: Soft Extremities: Yes: WNL Labs: CBC, BMP 04/22/17 06:00 04/22/17 06:00 - ....Imaging X-ray: Image Reviewed Problem List - Problems (1) Partial obstruction of small intestine Assessment/Plan: PER BOTTOM SANDER REPEATING AXR IN AM SIPS OF WATER TODAY ADVANCE DIET PER SURGERY DR ASTUDILLO TO RETURN ON MONDAY LAURA ROSE MD Code(s): K56.69 - OTHER INTESTINAL OBSTRUCTION (2) History of colon cancer in adulthood Code(s): Z85.038 - PERSONAL HISTORY OF MALIGNANT NEOPLASM OF LARGE INTESTINE (3) Crohn disease Code(s): K50.90 - CROHN'S DISEASE, UNSPECIFIED, WITHOUT COMPLICATIONS
[2017-04-22] MEDS: ATORVASTATIN CA 40 MG TABLET (FP) PO SCH (22:12)
[2017-04-23 07:12] LABS: MCH 27.3 pg (25.7-33.7); MCHC 32.4 g/dl (32.0-35.9); MEAN CELL VOLUME 84.2 fl (80-96); MEAN PLT VOLUME 7.9 fl (7.5-11.1); PLATELET COUNT 204 K/MM3 (134-434); RDW 13.6 % (11.9-15.9); WHITE BLOOD COUNT 5.1 K/mm3 (4.0-10.0)
[2017-04-23 07:21] LABS: ANION GAP 1 (8-16); CALCIUM 8.3 mg/dL (8.5-10.1); CO2 34 mmol/L (21-32); CREATININE 1.3 mg/dL (0.7-1.3); GLUCOSE,RANDOM 106 mg/dL (74-106)
[2017-04-23] MEDS: DEXTROSE 5%-0.45% SALINE 1,000 ML IV SCH ×2 (07:36→17:38)
--- NOTE | 2017-04-23 09:47 | PN ---
Physical Exam: SUBJECTIVE: Patient seen and examined at bedside. Afebrile overnight, however c/ o abdominal pain and nausea last night, and was given dilaudid and zofran. This AM, pt is no longer nauseated, has been passing flatus, however has not had a BM yet. Pt states that he is hungry. Still NPO, but has been eating ice chips. OBJECTIVE: Vital Signs Period Temp Pulse Resp BP Sys/Jackson Pulse Ox Last 24 Hr 97.8 F-98.5 F 70-77 16-20 128-155/79-87 96 GENERAL: The patient is awake, alert, and fully oriented, in no acute distress. HEAD: Normal with no signs of trauma. EYES: PERRL, extraocular movements intact, sclera anicteric, conjunctiva clear. NECK: Trachea midline, full range of motion, supple. LUNGS: Breath sounds equal, clear to auscultation bilaterally, no wheezes, no crackles, no accessory muscle use. HEART: Regular rate and rhythm, S1, S2 without murmur, rub or gallop. ABDOMEN: Soft, distended, normoactive bowel sounds, no guarding, no rebound, tender to palpation LUQ. EXTREMITIES: 2+ psoterior tibial pulses, warm, well-perfused, no edema. NEUROLOGICAL: Cranial nerves II through XII grossly intact. Laboratory Results - last 24 hr 04/22/17 04/23/17 04/23/17 10:15 06:15 06:15 WBC 5.1 RBC 4.43 Hgb 12.1 Hct 37.3 MCV 84.2 MCH 27.3 MCHC 32.4 RDW 13.6 Plt Count 204 MPV 7.9 Sodium 140 Potassium 4.1 Chloride 105 Carbon Dioxide 34 H Anion Gap 1 L BUN 9 Creatinine 1.3 Random Glucose 106 Calcium 8.3 L Urine Color Straw Urine Appearance Clear Urine pH 6.0 Ur Specific Jensen 1.015 Urine Protein Negative Urine Glucose (UA) Negative Urine Ketones Negative Urine Blood 2+ H Urine Nitrite Negative Urine Bilirubin Negative Urine Urobilinogen Negative Ur Leukocyte Esterase Negative Urine RBC 2 Urine WBC None Active Medications Generic Name Dose Route Start Last Admin Trade Name Freq PRN Reason Stop Dose Admin Atorvastatin Calcium 40 mg 04/21/17 22:00 04/22/17 22:12 Lipitor - PO 40 mg HS LAKISHA Administration Heparin Sodium (Porcine) 5,000 unit 04/21/17 10:00 04/22/17 22:11 Heparin - SQ 5,000 unit BID LAKISHA Administration Hydromorphone HCl 1 mg 04/22/17 07:42 04/22/17 22:53 Dilaudid Injection - IVPB 1 mg Q4H PRN Administration PAIN Dextrose/Sodium Chloride 1,000 mls @ 125 mls/hr 04/21/17 07:00 04/23/17 07:36 D5-1/2ns - IV 125 mls/hr ASDIR LAKISHA Administration Losartan Potassium 50 mg 04/21/17 14:15 04/22/17 09:44 Cozaar - PO 50 mg DAILY LAKISHA Administration Metoprolol Succinate 12.5 mg 04/21/17 14:15 04/22/17 09:44 Toprol Xl - PO 12.5 mg DAILY LAKISHA Administration Ondansetron HCl 4 mg 04/21/17 07:26 04/22/17 22:56 Zofran Injection IVPB 4 mg Q6H PRN Administration NAUSEA Ranolazine 1,000 mg 04/21/17 22:00 04/22/17 22:12 Ranexa - PO 1,000 mg BID LAKISHA Administration ASSESSMENT/PLAN: 66 y/o M with PMH Crohns (dx 20 yrs ago), Colon CA, multiple SBO, bowel resection (1996), hx incarcerated ventral hernia, who presented to the ED with abdominal pain and vomiting since 6pm, yesterday. Pt admitted to med-surg for SBO secondary to adhesions. #SBO secondary to adhesions -GI and surgery on case -Abdominal Xray (04/23): little change, still retained contrast mixed with stool in colon, resolving partial SBO -Once pt improves, can advance diet to clears -NPO, ice chips -IV hydration D51/2NS to replete fluids @ 125 cc/hr -Dilaudid 1mg q4h PRN for pain control -Zofran PRN for nausea -Parenteral glucocorticoids if does not resolve in 24-28 hrs, suggested in pts with comorbid Crohns and SBO -NG tube- refused by pt, risks and benefits discussed with pt, pt expressed understanding -Serial abdominal exams #HTN-uncontrolled -BP 155/87, most likely secondary to pain -Will see if resolves with pain control -Continue Losartan 50 mg PO daily -Continue Toprol XL 12.5 mg PO daily #HLD -Continue lipitor 40mg PO HS #NAVEEN secondary to volume depletion-resolved -most likely was pre-renal, d/t depletion resulting from SBO -BUN/Cr 9/1.3 today -F/u BMP routinely -Baseline Cr ~1.5 #Prophylaxis DVT: early ambulation #FEN -D51/2NS @ 125 cc/hr -Monitor electrolytes -NPO Disposition will advance diet to clears once SBO improved Visit type - Emergency Visit Emergency Visit: No - New Patient This patient is new to me today: No - Critical Care Critical Care patient: No
[2017-04-23] MEDS: HEPARIN NA (PORCINE) 5,000 UNITS/ML 1ML VIAL SQ SCH ×2 (10:05→22:33)
[2017-04-23] MEDS: LOSARTAN POTASSIUM 50 MG TABLET (FP) PO SCH (10:06)
[2017-04-23] MEDS: METOPROLOL SUCCINATE 25 MG TAB.SR.24H (FP) PO SCH (10:06)
[2017-04-23] MEDS: RANOLAZINE E.R. 500 MG TABLET (FP) PO SCH ×2 (10:06→22:35)
--- NOTE | 2017-04-23 13:16 | PN ---
Progress Note, Physician History of Present Illness: Patient admitted with partial intestinal obstruction. He has had a bowel movement today. denies any nausea, or vomiting. He had abdominal pain , crampy in left upper quadrant last night but has no pain now. - Current Medication List Current Medications: Active Medications Atorvastatin Calcium (Lipitor -) 40 mg PO HS [facility] Last Admin: 04/22/17 22:12 Dose: 40 mg Heparin Sodium (Porcine) (Heparin -) 5,000 unit SQ BID [facility] Last Admin: 04/23/17 10:05 Dose: 5,000 unit Hydromorphone HCl (Dilaudid Injection -) 1 mg IVPB Q4H PRN PRN Reason: PAIN Last Admin: 04/22/17 22:53 Dose: 1 mg Dextrose/Sodium Chloride (D5-1/2ns -) 1,000 mls @ 125 mls/hr IV ASDIR [facility] Last Admin: 04/23/17 07:36 Dose: 125 mls/hr Losartan Potassium (Cozaar -) 50 mg PO DAILY [facility] Last Admin: 04/23/17 10:06 Dose: 50 mg Metoprolol Succinate (Toprol Xl -) 12.5 mg PO DAILY [facility] Last Admin: 04/23/17 10:06 Dose: 12.5 mg Ondansetron HCl (Zofran Injection) 4 mg IVPB Q6H PRN PRN Reason: NAUSEA Last Admin: 04/22/17 22:56 Dose: 4 mg Ranolazine (Ranexa -) 1,000 mg PO BID [facility] Last Admin: 04/23/17 10:06 Dose: 1,000 mg - Objective Vital Signs: Vital Signs Temperature 98.0 F 04/23/17 11:00 Pulse Rate 63 04/23/17 11:00 Respiratory Rate 18 04/23/17 11:00 Blood Pressure 132/84 04/23/17 11:00 O2 Sat by Pulse Oximetry (%) 97 04/23/17 09:00 Labs: CBC, BMP 04/23/17 06:15 04/23/17 06:15 Problem List - Problems (1) Small intestine obstruction Code(s): K56.69 - OTHER INTESTINAL OBSTRUCTION (2) Abdominal pain Code(s): R10.9 - UNSPECIFIED ABDOMINAL PAIN Qualifiers: Abdominal location: left lower quadrant Qualified Code(s): R10.32 - Left lower quadrant pain (3) Enteritis Code(s): K52.9 - NONINFECTIVE GASTROENTERITIS AND COLITIS, UNSPECIFIED (4) CAD (coronary artery disease) Code(s): I25.10 - ATHSCL HEART DISEASE OF [place] CORONARY ARTERY W/O ANG PCTRS Assessment/Plan Abdomen is soft , not distended. X-ray shows no change from yesterday , stool and contrast in large intestine. Small bowel loops not distended. WBC is normal . Will resume liquid diet.
--- NOTE | 2017-04-23 16:02 | PN ---
Teaching Attending Note Name of Resident: Shilpa Rachel ATTENDING PHYSICIAN STATEMENT I saw and evaluated the patient. I reviewed the resident's note and discussed the case with the resident. I agree with the resident's findings and plan as documented. SUBJECTIVE:states he had some nausea last night and vomited. BM this Am consisting of contrast. states he only has some LLQ pain which is relieved with pain medication. currently tolerated liquid diet for lunch. denies CP, SOB, fever, chills. continues to have flatus. OBJECTIVE: Last Vital Signs Temp Pulse Resp BP Pulse Ox 99.1 F 65 18 148/90 97 04/23/17 14:59 04/23/17 14:59 04/23/17 14:59 04/23/17 14:59 04/23/17 09:00 General NAD Abdomen soft + distended +LLQ pain. hypoactivs BS ASSESSMENT AND PLAN: 66yo M with PMH adenocarcinoma of the cecum, multiple SBP and Crohns presented to the ER with abdominal pain and vomiting and found to have SBO 1. SBO- AXR does not show improvement however clinically improved. BM this AM. advanced to liquid diet, tolerated so far. will cont watchful waiting for now. serial abdominal exams. AXR. cont IVF, pain management and nausea control. GI and surgery on board. 2. HTN- improved. was likely elevated due to pain. cont home medications 3. NAVEEN- likely dehydration. IVF. avoid nephrotoxic agents 4. Gastric polyp- seen on CT scan. no known hx. not seen on CT scan from last year. will need to determine if this was seen on previous endoscopy. obtain records from GI 5. adenocarcinoma of the cecum 6. hematuria- with straining on urination. will need urology outpatient follow up to evaluate prostate. 7. DVT ppx- hep sq
[2017-04-23] MEDS ORDERED: ZOLPIDEM TARTRATE 5 MG TABLET PO PRN (16:36)
[2017-04-23] MEDS: ATORVASTATIN CA 40 MG TABLET (FP) PO SCH (22:35)
[2017-04-24 08:26] LABS: MCHC 32.2 g/dl (32.0-35.9); MEAN PLT VOLUME 7.5 fl (7.5-11.1); PLATELET COUNT 212 K/MM3 (134-434); RDW 13.9 % (11.9-15.9); WHITE BLOOD COUNT 5.5 K/mm3 (4.0-10.0)
[2017-04-24 08:47] LABS: ANION GAP 5 (8-16); CALCIUM 8.5 mg/dL (8.5-10.1); CO2 29 mmol/L (21-32); CREATININE 1.1 mg/dL (0.7-1.3); GLUCOSE,RANDOM 105 mg/dL (74-106)
[2017-04-24] MEDS: DEXTROSE 5%-0.45% SALINE 1,000 ML IV SCH (10:17)
[2017-04-24] MEDS: RANOLAZINE E.R. 500 MG TABLET (FP) PO SCH (10:18)
[2017-04-24] MEDS: METOPROLOL SUCCINATE 25 MG TAB.SR.24H (FP) PO SCH (10:18)
[2017-04-24] MEDS: LOSARTAN POTASSIUM 50 MG TABLET (FP) PO SCH (10:19)
[2017-04-24] MEDS: HEPARIN NA (PORCINE) 5,000 UNITS/ML 1ML VIAL SQ SCH (10:19)
--- NOTE | 2017-04-24 10:22 | PN ---
Progress Note, Physician - Current Medication List Current Medications: Active Medications Atorvastatin Calcium (Lipitor -) 40 mg PO HS [facility] Last Admin: 04/23/17 22:35 Dose: 40 mg Heparin Sodium (Porcine) (Heparin -) 5,000 unit SQ BID [facility] Last Admin: 04/24/17 10:19 Dose: 5,000 unit Hydromorphone HCl (Dilaudid Injection -) 1 mg IVPB Q4H PRN PRN Reason: PAIN Last Admin: 04/22/17 22:53 Dose: 1 mg Dextrose/Sodium Chloride (D5-1/2ns -) 1,000 mls @ 125 mls/hr IV ASDIR [facility] Last Admin: 04/24/17 10:17 Dose: 125 mls/hr Losartan Potassium (Cozaar -) 50 mg PO DAILY [facility] Last Admin: 04/24/17 10:19 Dose: 50 mg Metoprolol Succinate (Toprol Xl -) 12.5 mg PO DAILY [facility] Last Admin: 04/24/17 10:18 Dose: 12.5 mg Ondansetron HCl (Zofran Injection) 4 mg IVPB Q6H PRN PRN Reason: NAUSEA Last Admin: 04/22/17 22:56 Dose: 4 mg Ranolazine (Ranexa -) 1,000 mg PO BID [facility] Last Admin: 04/24/17 10:18 Dose: 1,000 mg Zolpidem Tartrate (Ambien -) 5 mg PO HS PRN PRN Reason: INSOMNIA Last Admin: 04/23/17 22:35 Dose: 5 mg - Objective Vital Signs: Vital Signs Temperature 98.0 F 04/24/17 10:00 Pulse Rate 62 04/24/17 10:00 Respiratory Rate 18 04/24/17 10:00 Blood Pressure 144/93 04/24/17 10:00 O2 Sat by Pulse Oximetry (%) 97 04/23/17 21:00 Labs: CBC, BMP 04/24/17 07:30 04/24/17 07:30 Problem List - Problems (1) Small intestine obstruction Code(s): K56.69 - OTHER INTESTINAL OBSTRUCTION (2) Abdominal pain Code(s): R10.9 - UNSPECIFIED ABDOMINAL PAIN Qualifiers: Abdominal location: left lower quadrant Qualified Code(s): R10.32 - Left lower quadrant pain (3) Enteritis Code(s): K52.9 - NONINFECTIVE GASTROENTERITIS AND COLITIS, UNSPECIFIED (4) CAD (coronary artery disease) Code(s): I25.10 - ATHSCL HEART DISEASE OF [place] CORONARY ARTERY W/O ANG PCTRS Assessment/Plan He has no abdominal pain. He has been tolerating oral feeding. Abdomen is soft, X-ray of abdomen has improved. No sign of intestinal obstruction. Will sign off.
--- NOTE | 2017-04-24 13:06 | PN ---
GI Progress Note Subjective: No acute events No abdominal pain No N/V, tolerating PO: Full liquids currently Had 2 BM's today AXR revealed improvement in small bowel distention and further passage of contrast from colon - Objective Vital Signs: Vital Signs Temperature 98.0 F 04/24/17 10:00 Pulse Rate 62 04/24/17 10:00 Respiratory Rate 18 04/24/17 10:00 Blood Pressure 144/93 04/24/17 10:00 O2 Sat by Pulse Oximetry (%) 99 04/24/17 10:00 Constitutional: Calm Eyes: No: Sclera Icterus Cardiovascular: Yes: Regular Rate and Rhythm Respiratory: Yes: CTA Bilaterally Gastrointestinal Inspection: Yes: Scars. No: Distention ...Auscultate: Yes: Normoactive Bowel Sounds ...Palpate: No: Tenderness Edema: No (No LE edema) Neurological: Yes: Alert, Oriented Labs: CBC, BMP 04/24/17 07:30 04/24/17 07:30 Problem List - Problems (1) Small intestine obstruction Assessment/Plan: Clinically improved Advance to low residue / low fiber diet if continued tolerance of full liquids Follow-up with primary molding fitter upon discharge or with Dr. Montalvo as outlined in initial consultation Code(s): K56.69 - OTHER INTESTINAL OBSTRUCTION (2) Enlarged prostate Code(s): N40.0 - BENIGN PROSTATIC HYPERPLASIA WITHOUT LOWER URINRY TRACT SYMP (3) Gastric polyp Code(s): K31.7 - POLYP OF STOMACH AND DUODENUM
[2017-04-24 14:52] VITALS: BP 157/89; PULSE 67; TEMP 98.4
--- NOTE | 2017-04-24 17:26 | PN ---
Teaching Attending Note Name of Resident: Gregory Corbin ATTENDING PHYSICIAN STATEMENT I saw and evaluated the patient. I reviewed the resident's note and discussed the case with the resident. I agree with the resident's findings and plan as documented. SUBJECTIVE:clinically improved. 3 BM today, soft brown stool. tolerating low residue diet. denies CP, SOB, fever, chills, N/V/C/D OBJECTIVE: Last Vital Signs Temp Pulse Resp BP Pulse Ox 98.4 F 67 20 157/89 99 04/24/17 14:50 04/24/17 14:50 04/24/17 14:50 04/24/17 14:50 04/24/17 10:00 General NAD Abdomen soft + distended +LLQ pain. normoactivs BS ASSESSMENT AND PLAN: 66yo M with PMH adenocarcinoma of the cecum, multiple SBP and Crohns presented to the ER with abdominal pain and vomiting and found to have SBO 1. SBO- clinically improved. multiple BM. tolerating low residue diet. will need to f/u with GI this week for further evaulation. cont diet, ambulate. GI and surgery on board. 2. HTN- improved. was likely elevated due to pain. cont home medications 3. NAVEEN- likely dehydration. IVF. avoid nephrotoxic agents 4. Gastric polyp- seen on CT scan. no known hx. not seen on CT scan from last year. will need to determine if this was seen on previous endoscopy. obtain records from GI 5. adenocarcinoma of the cecum 6. hematuria-reports has known hx of microscopic hematuria. no straining on urination or feeling of incomplete voiding. had cystoscopy and renal u/s done in the past. states he will d/w PMD about PSA and workup 7. DVT ppx- hep sq 8. d/c home
--- NOTE | 2017-04-25 22:03 | DS ---
Physical Exam: SUBJECTIVE: Patient seen and examined at bed side. patient is stable to be discharged. OBJECTIVE: PHYSICAL EXAM GENERAL: The patient is awake, alert, and fully oriented, in no acute distress. HEAD: Normal with no signs of trauma. EYES: PERRL, extraocular movements intact, sclera anicteric, conjunctiva clear. ENT: Ears normal, nares patent, oropharynx clear without exudates, moist mucous membranes. NECK: Trachea midline, full range of motion, supple. LUNGS: Breath sounds equal, clear to auscultation bilaterally, no wheezes, no crackles, no accessory muscle use. HEART: Regular rate and rhythm, S1, S2 without murmur, rub or gallop. ABDOMEN: Soft, nontender, nondistended, normoactive bowel sounds, no guarding, no rebound, no hepatosplenomegaly, no masses. EXTREMITIES: 2+ pulses, warm, well-perfused, no edema. NEUROLOGICAL: Cranial nerves II through XII grossly intact. Normal speech, gait not observed. PSYCH: Normal mood, normal affect. SKIN: Warm, dry, normal turgor, no rashes or lesions noted. LABS HOSPITAL COURSE: Date of Admission:04/21/17 Date of Discharge: 04/24/17 66yo M with H adenocarcinoma of the cecum, multiple SBO and Crohns presented to the ER with abdominal pain and vomiting and found to have SBO that is clinically improved with treatment. patient has multiple BM. tolerating low residue diet.Patient was also found to have NAVEEN pre renal that is improved with IV fluids. Patient will need to f/u with GI within a week for further evaulation. and will follow up with his PCP within a week. Patient will cont low fiber and residue diet,with early ambulation. Minutes to complete discharge: 20 Discharge Summary Reason For Visit: SMALL BOWEL OBSTRUCTION Condition: Stable - Instructions Diet, Activity, Other Instructions: Low fiber and residue diet . Increased fluid intake daily walking for 30 min Resume home meds. increase activity as tolerated Follow up with the Electric Train Driver within 1 week. Follow up with your primary care doctor in 1 week. Discuss within for workup for cause of hematuria noted on exam. If symptoms worsen or pain worsen return to ED immediately. Referrals: Andrew Montalvo MD [Staff Physician] - Disposition: HOME - Home Medications Comprehensive Discharge Medication List: Ambulatory Orders Atorvastatin Ca [Lipitor] 40 mg PO HS 07/12/16 Cholecalciferol (Vitamin D3) [Vitamin D3] 5,000 unit PO DAILY 07/12/16 Losartan Potassium 50 mg PO DAILY 07/12/16 Magnesium Oxide [Magnesium] 500 mg PO DAILY 07/12/16 Metoprolol Succinate [Toprol XL -] 12.5 mg PO DAILY 07/12/16 Multivitamins [Multivit ([facility] Formulary)] 1 tab PO DAILY 07/12/16 [place]-3S/Dha/Epa/Fish Oil [Fish Oil 1,200 mg Softgel] 1 each PO DAILY 07/12/16 Ranolazine [Ranexa] 1,000 mg PO BID 07/12/16 This patient is new to me today: Yes Date on this admission: 04/25/17 Emergency Visit: Yes ED Registration Date: 04/21/17 Care time: The patient presented to the Emergency Department on the above date and was hospitalized for further evaluation of their emergent condition. Critical Care patient: No - Discharge Referral Referred to [facility] Med [facility] No
== END 2017-04-24 18:47 | disposition home or self-care (01) | DRG 389 ==
LOC: JER 00:50 → JERBED 06:12 → J5S 08:10
PROVIDERS: ADMIT Internal Medicine; ATTEND Internal Medicine
DX: K56.69 Other intestinal obstruction (principal); N17.9 Acute kidney failure, unspecified; C18.0 Malignant neoplasm of cecum; N40.0 Benign prostatic hyperplasia without lower urinary tract symptoms; K31.7 Polyp of stomach and duodenum; I10 Essential (primary) hypertension; R31.9 Hematuria, unspecified; I25.10 Atherosclerotic heart disease of native coronary artery without angina pectoris; R10.9 Unspecified abdominal pain; E78.5 Hyperlipidemia, unspecified; E86.9 Volume depletion, unspecified
CPT/HCPCS: 36415; 71020-TC; 74020-TC; 74176-TC; 80048; 80053; 81003; 81015; 82150; 83605; 83690; 83735; 84100; 84484; 85025; 85027; 93005; 93010; 97116-GP; 97161-GP; 99282-25; J1644

== ENCOUNTER 2018-01-18 06:10 | Day surgery (SDC) | payer OTHER, BC ==
[2018-01-17 09:59] VITALS: BMI 28.8
[~2018-01-18 06:10] MED LIST: BUPIVACAINE HCL/PF 0.25% (2.5MG/ML) 10 ML VIAL IJ ONE; LIDOCAINE HCL 1% PRESERVATIVE FREE - 30ML VIAL IJ ONE; methylPREDNISolone ACET (DEPO) 80 MG/1 ML VIAL IJ ONE
[2018-01-18 06:32] VITALS: TEMP 97.7
[2018-01-18] MEDS ORDERED: MIDAZOLAM HCL 2 MG/2 ML SINGLE DOSE VIAL ONE (07:24)
[2018-01-18] MEDS ORDERED: PROPOFOL 20 ML ONE (07:25)
[2018-01-18] MEDS ORDERED: LIDOCAINE HCL/PF 2% SDV 5ML VIAL ONE ×2 (07:25→07:29)
[2018-01-18] MEDS ORDERED: ROCURONIUM BROMIDE 50 MG/5 ML VIAL ONE (07:27)
[2018-01-18] MEDS ORDERED: SUCCINYLCHOLINE CHLORIDE 200 MG/10 ML VIAL ONE (07:27)
[2018-01-18] MEDS ORDERED: DEXAMETHASONE SOD PHOSPHATE 4 MG/1 ML VIAL ONE (07:29)
[2018-01-18] MEDS ORDERED: KETOROLAC TROMETHAMINE 30 MG/1 ML VIAL ONE (07:29)
[2018-01-18] MEDS ORDERED: methylPREDNISolone ACET (DEPO) 80 MG/1 ML VIAL ONE (07:52)
[2018-01-18] MEDS ORDERED: ONDANSETRON 4 MG/2 ML VIAL IVPUSH PRN (07:52)
[2018-01-18] MEDS ORDERED: BUPIVACAINE HCL/PF 0.25% (2.5MG/ML) 10 ML VIAL ONE (07:52)
[2018-01-18] MEDS ORDERED: LIDOCAINE HCL 1% PRESERVATIVE FREE - 30ML VIAL IJ ONE (08:21)
[2018-01-18] MEDS ORDERED: methylPREDNISolone ACET (DEPO) 80 MG/1 ML VIAL IJ ONE (08:21)
[2018-01-18] MEDS ORDERED: BUPIVACAINE HCL/PF 0.25% (2.5MG/ML) 10 ML VIAL IJ ONE (08:21)
--- NOTE | 2018-01-18 09:23 | OP ---
DATE OF OPERATION: 01/18/2018 PREOPERATIVE DIAGNOSIS: Lumbar spinal stenosis with back pain, right greater than left lower extremity radiculopathy. POSTOPERATIVE DIAGNOSIS: Lumbar spinal stenosis with back pain, right greater than left lower extremity radiculopathy. ATTENDING SURGEON: Matthew Antony MD PROCEDURE: 1. Lumbar epidural steroid injection. 2. Intraoperative fluoroscopy. ANESTHESIA: Local with IV sedation. ANESTHESIOLOGIST: Dr. Nagel INDICATIONS: The patient is a 67-year-old male with back pain, lumbar radiculopathy. Because of his intractable symptoms and failure of conservative treatment, he is here for the first epidural steroid injection of the year. The risks of the procedure include, but are not limited to, bleeding, infection, spinal headache , and neurological injury. The patient understands the indications for the procedure , the procedure in detail, risks and benefits, and alternative treatments for his lumbar condition, and he wishes to proceed. No guarantees were given for a favorable outcome. PROCEDURE IN DETAIL: After the patient was taken to the operating room, he was placed in the prone position with a pillow under his hips. Lumbar region was cleaned with alcohol and prepped with Betadine. A skin wheal was raised with 5 mL of 1% Xylocaine. A 22-gauge spinal needle was inserted under AP fluoroscopic guidance first at L4-L5 level on the right. There was dense and interlaminar fibrosis and osteophyte, and access was not possible. Needle was then marched cephalad towards the L3-L4 interspace. Loss of resistance technique was utilized, and there was no CSF or blood backflow. Depo-Medrol 80 mg and 1 mL of 0.25% Marcaine were injected. The needle was withdrawn and sterile bandage was applied. The patient tolerated the procedure well. He was turned back to the supine position, moving bilateral lower extremities well. He did not complain of a headache. Surinder [id number] MTDD
[2018-01-18 10:07] VITALS: BP 108/71; PULSE 80
== END 2018-01-18 10:08 | disposition home or self-care (01) ==
LOC: JASU-SURG 06:10
PROVIDERS: ATTEND Neurological Surgery
PROC: 3E0R3BZ Introduction of Anesthetic Agent into Spinal Canal, Percutaneous Approach (ICD-10-PCS; 2018-01-18)
PROC: B01BZZZ Fluoroscopy of Spinal Cord (ICD-10-PCS; 2018-01-18)
PROC: 3E0R33Z Introduction of Anti-inflammatory into Spinal Canal, Percutaneous Approach (ICD-10-PCS; principal; 2018-01-18 08:00)
DX: M48.061 Spinal stenosis, lumbar region without neurogenic claudication (principal); M54.5 Low back pain; M54.16 Radiculopathy, lumbar region
CPT/HCPCS: 76000-TC-FY